=== PATIENT | male | born 1955 | race Caucasian/White ===

== ENCOUNTER 2022-06-14 19:03 | Emergency (ER) | payer OTHER, MEDICARE, BC, SELFPAY ==
[2022-06-14 19:05] VITALS: BP 167/87; PULSE 119; RESP 18; TEMP 36.1; O2SAT 97; BMI 44.6
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
[2022-06-14 22:07] VITALS: PULSE 119; RESP 18; O2SAT 97
== END 2022-06-14 22:08 | disposition home or self-care (01) ==
PROVIDERS: Emergency Provider Emergency Medicine; Visit Provider Emergency Medicine
DX: S00.83XA Contusion of other part of head, initial encounter (principal); M50.30 Other cervical disc degeneration, unspecified cervical region; Y92.410 Unspecified street and highway as the place of occurrence of the external cause; V47.6XXA Car passenger injured in collision with fixed or stationary object in traffic accident, initial encounter
CPT/HCPCS: 70450; 70486; 72040; 99284